=== PATIENT | male | born 1980 ===

== ENCOUNTER 2025-05-08 06:00 | Day surgery (SDC) | payer OTHER ==
[~2025-05-08 06:00] MED LIST: INTEGRA PLUS C1 EACH PO
[2025-05-08] MEDS ORDERED: CEFAZOLIN SODIUM 1,000 MG VIAL ONE (07:02)
[2025-05-08] MEDS ORDERED: HEPARIN SODIUM,PORCINE/PF 100 UNIT/ML SYRINGE IV ONE (07:25)
[2025-05-08] MEDS ORDERED: BUPIVACAINE HCL/MPF 0.5% 30ML VIAL ONE (07:40)
[2025-05-08] MEDS ORDERED: LIDOCAINE HCL 1%/EPINEPHRINE 20ML VIAL IJ ONE ×2 (07:40→08:00)
[2025-05-08] MEDS ORDERED: HEPARIN SODIUM,PORCINE 5,000 UNITS/ML VIAL IJ ONE (08:00)
[2025-05-08] MEDS ORDERED: BUPIVACAINE HCL 30 ML VIAL IV ONE (08:00)
[2025-05-08] MEDS ORDERED: CEFAZOLIN SODIUM 1,000 MG VIAL IV ONE (08:00)
[2025-05-08] MEDS ORDERED: TRAM1TAB98 PO (08:08)
== END 2025-05-08 11:25 | disposition home or self-care (01) ==
LOC: CIR.AMB 06:00
PROVIDERS: ATTEND Surgery
DX: C20 Malignant neoplasm of rectum (principal)
CPT/HCPCS: 36561; C1751